=== PATIENT | female | born 1975 | race Caucasian/White ===

== ENCOUNTER 2021-11-01 06:27 | Observation (INO) | payer OTHER ==
[~2021-11-01] VITALS: Ht 170.2 cm; Wt 97.4 kg
[2021-11-01] VITALS (7 sets, daily range): BP systolic 101–147; BP diastolic 63–87
[~2021-11-01 06:27] MED LIST: ADDE10TA PO; ADDE20TA PO; ALBU8.5H INH; CLOT1CRE71 TOP; ERGO500029 PO; HEPARIN SOD (PORCINE) 5000UNITS/ML 1ML VIAL/SYRINGE SQ ONE; LIDOCAINE 1% MDV 20ML VIAL SQ PRN; LR 1,000 ML IV ONE; METR0.7534 TOP; NYST1POW9 TOP; ZOLP5TAB PO; ceFAZolin SOD 2 GM in IV 1 EA IV ONE
[2021-11-01] MEDS ORDERED: BUPIVACAINE LIPOSOME/PF 1.3% 20ML VIAL (13.3MG/ML)(EXPAREL)(C9290 PER1MG) As Ordered ONE (07:15)
[2021-11-01] MEDS ORDERED: LIDOCAINE 1% MDV 20ML VIAL As Ordered ONE (07:15)
[2021-11-01] MEDS ORDERED: GENTAMICIN SULF 80MG/2ML VIAL As Ordered ONE (07:15)
[2021-11-01] MEDS ORDERED: EPINEPHrine INJ 1 MG/ML 1ML AMP As Ordered ONE (07:19)
[2021-11-01] MEDS ORDERED: propofoL 200 MG/20 ML VIAL As Ordered ONE (07:23)
[2021-11-01] MEDS ORDERED: dexameTHASONE 4 MG/ML 1ML VIAL (J1100 PER 1MG) As Ordered ONE (07:23)
[2021-11-01] MEDS ORDERED: ONDANSETRON 4MG/2ML VIAL As Ordered ONE (07:23)
[2021-11-01] MEDS ORDERED: LIDOCAINE 2% 100MG/5ML SDV (FOR ANES.) As Ordered ONE (07:23)
[2021-11-01] MEDS ORDERED: ROCURONIUM BROMIDE 50 MG/5 ML VIAL As Ordered ONE ×3 (07:23→09:27)
[2021-11-01] MEDS ORDERED: fentaNYL 250 MCG/5 ML INJECTION As Ordered ONE (07:23)
[2021-11-01] MEDS ORDERED: MIDAZOLAM INJ 2MG/2ML VIAL (J2250 PER 1MG) As Ordered ONE (07:24)
[2021-11-01] MEDS ORDERED: SCOPOLAMINE 1MG TRANSDERMAL PATCH TOP ONE (07:25)
[2021-11-01] MEDS ORDERED: LACRILUBE (AKWA TEARS) OPHTH OINT 3.5 GM As Ordered ONE (07:54)
[2021-11-01] MEDS ORDERED: HYDROmorphone HCL 2MG/ML 1ML VIAL As Ordered ONE (08:25)
[2021-11-01] MEDS ORDERED: SUGAMMADEX SODIUM 500 MG/5 ML VIAL (BRIDION) As Ordered ONE (08:25)
[2021-11-01] MEDS ORDERED: ACETAMINOPHEN 1000MG 100ML IV BTL (OFIRMEV) (J0131 PER 10MG) As Ordered ONE (08:25)
[2021-11-01] MEDS ORDERED: ONDANSETRON 4MG/2ML VIAL IV PRN ×2 (11:35→12:00)
[2021-11-01] MEDS ORDERED: ACETAMINOPHEN TAB 650MG DOSE (2X325MG) PO PRN (11:35)
[2021-11-01] MEDS ORDERED: LR 1,000 ML IV SCH (12:00)
[2021-11-01] MEDS: LR 1,000 ML IV SCH ×2 (12:02→13:39)
[2021-11-01] MEDS: oxyCODONE 5MG TAB PO PRN ×2 (12:06→12:48)
[2021-11-01] MEDS: fentaNYL 100 MCG/2 ML INJECTION IV PRN ×4 (12:06→12:23)
[2021-11-01] MEDS ORDERED: HOME MED LIST COMPLETE! XX SCH (13:20)
[2021-11-01] MEDS: ADDERALL 5 MG TAB PO SCH ×2 (13:45→14:00)
[2021-11-01] MEDS: ceFAZolin SOD 1 GM in D5W MINI-BAG PLUS 50 ML IV SCH (16:23)
[2021-11-01] MEDS: PERCOCET 5MG/325MG TAB PO PRN ×2 (16:40→21:41)
[2021-11-02] MEDS: ceFAZolin SOD 1 GM in D5W MINI-BAG PLUS 50 ML IV SCH ×2 (00:17→07:38)
[2021-11-02 01:06] VITALS: BP 149/74
[2021-11-02 06:19] VITALS: BP 142/75
[2021-11-02] MEDS: PERCOCET 5MG/325MG TAB PO PRN ×2 (07:38→11:37)
[2021-11-02] MEDS: ADDERALL 5 MG TAB PO SCH ×2 (09:11→12:00)
[2021-11-02] MEDS ORDERED: PERCOCET PO (10:14)
== END 2021-11-02 12:20 | disposition home or self-care (01) ==
LOC: M SDC 06:27 → M ED INP 06:28 → EDUNIT# 07:30 → M MS5PR 12:56
PROVIDERS: ADMIT Plastic Surgery Surgery of the Hand; ATTEND Plastic Surgery Surgery of the Hand
DX: N62 Hypertrophy of breast (principal); J45.909 Unspecified asthma, uncomplicated; R21 Rash and other nonspecific skin eruption; F90.9 Attention-deficit hyperactivity disorder, unspecified type; F43.10 Post-traumatic stress disorder, unspecified; F32.9 Major depressive disorder, single episode, unspecified; F41.9 Anxiety disorder, unspecified; Z88.1 Allergy status to other antibiotic agents; Z79.899 Other long term (current) drug therapy
CPT/HCPCS: 19318; 88300; 88305; 96361; 96365; 96366; C9290; J0131; J0171; J0690; J1100; J1170; J1580; J1644; J2250; J2405; J3010